=== PATIENT | male | born 1940 | race Caucasian/White ===

== ENCOUNTER 2016-09-10 16:50 | Outpatient (CLI) | payer MEDICARE, MEDICAID | END 2016-09-10 16:51 | disposition home or self-care (01) | LOC: HPCALD 16:50 | PROVIDERS: ATTEND Family Medicine | DX: I48.2 Chronic atrial fibrillation (principal) | CPT/HCPCS: 36415; 85610 ==

== ENCOUNTER 2016-12-10 09:43 | Outpatient (CLI) | payer MEDICARE, MEDICAID ==
[2016-12-10 11:17] LABS: ALT (SGPT) 23 U/L (0-55); AST (SGOT) 17 U/L (5-34); Albumin 4.1 g/dL (3.4-4.8); Alkaline Phosphatase 72 U/L (40-150); Anion Gap 17 mmol/L (10-20); BUN (Urea Nitrogen) 20 mg/dL (8.4-25.7); Bilirubin, Total 0.6 mg/dL (0.2-1.2); Calc. Creatinine Clearance 0 mL/min (70-130); Calcium 9.2 mg/dL (7.8-10.44); Carbon Dioxide 24 mmol/L (23-31); Cardiac Risk 4.5 (Less than 4.5); Chloride 106 mmol/L (98-107); Cholesterol 98 mg/dL (< 200 Desired); Estimated GFR-MDRD 47; Globulin 2.6 g/dL (2.4-3.5); Glucose 136 mg/dL (83-110); HDL Cholesterol 22 mg/dL (>60 Neg Risk); LDL Cholesterol, Calculated 42 mg/dL; Potassium 4.7 mmol/L (3.5-5.1); Protein, Total 6.7 g/dL (5.8-8.1); Sodium 142 mmol/L (136-145); Triglycerides 171 mg/dL (Less than 150)
[2016-12-10 12:19] LABS: #Basophils 0.1 thou/uL (0.0-0.2); #Eosinphils 0.5 thou/uL (0.0-0.7); #Lymphocytes 1.5 thou/uL (1.20-3.40); #Monocytes 0.7 thou/uL (0.11-0.59); #Neutrophils 5.1 thou/uL (1.40-6.50); %Basophils 0.9 % (0.0-1.0); %Eosinophils 6.4 % (0.0-10.0); %Lymphocytes 18.7 % (21.0-51.0); %Monocytes 8.9 % (0.0-10.0); %Neutrophils 65.1 % (42.0-75.0); Hemoglobin 15.6 g/dL (14.0-18.0); Mean Corpuscular HGB CONC 34.6 g/dL (32.0-36.0); Mean Corpuscular Hemoglobin 32.2 pg (27.0-31.0); Mean Corpuscular Volume 93.1 fl (80.0-94.0); Mean Platelet Volume 6.3 fL (7.4-10.4); Platelet Count 189 thou/uL (130-400); RBC Distribution Width 11.7 % (11.5-14.5); Red Blood Cell (RBC) Count 4.85 mill/uL (4.70-6.10); White Blood Cell (WBC) Count 7.8 thou/uL (4.8-10.8)
[2016-12-10 12:30] LABS: Hemoglobin A1c 5.9 % (4.0-6.0)
[2016-12-10 18:10] LABS: Creatinine, Urine 82.31 mg/dL (63-166)
[2016-12-10 18:13] LABS: Microalbumin Urine 51.3 mg/dL (0.5-50.0); Microalbumin/Creat Ratio 623.3 mg/g (Less than 30)
== END 2016-12-10 09:44 | disposition home or self-care (01) ==
LOC: HPCALD 09:43
PROVIDERS: ATTEND Family Medicine
DX: E11.9 Type 2 diabetes mellitus without complications (principal)
CPT/HCPCS: 36415; 80053; 80061; 82043; 83036; 84443; 85025

== ENCOUNTER 2017-01-13 10:24 | Emergency (ER) | payer MEDICARE, MEDICAID ==
[2017-01-13 10:48] LABS: ALT (SGPT) 38 U/L (8-55); AST (SGOT) 41 U/L (5-34); Albumin 3.3 g/dL (3.4-4.8); Alkaline Phosphatase 92 U/L (40-150); BUN (Urea Nitrogen) 22 mg/dL (8.4-25.7); Bilirubin, Total 0.5 mg/dL (0.2-1.2); Calc. Creatinine Clearance 0 mL/min (70-130); Calcium 9.8 mg/dL (7.8-10.44); Chloride 110 mmol/L (98-107); Estimated GFR-MDRD 32; Globulin 2.7 g/dL (2.4-3.5); Potassium 5.6 mmol/L (3.5-5.1); Sodium 148 mmol/L (136-145)
[2017-01-13 10:49] LABS: Glucose 327 mg/dL (83-110)
[2017-01-13 10:50] LABS: Carbon Dioxide Less than 8 mmol/L (23-31)
[2017-01-13 10:54] LABS: Anisocytosis SLIGHT = 6-15 cells (100X) (0-5/hpf); Eosinophils 6 % (0-10); Hemoglobin 14.5 g/dL (14.0-18.0); Lymphocytes 59 % (21-51); MDiff Complete? YES; Mean Corpuscular HGB CONC 32.4 g/dL (32.0-36.0); Mean Corpuscular Hemoglobin 32.7 pg (27.0-31.0); Mean Platelet Volume 6.5 fL (7.4-10.4); Monocytes 5 % (0-10); Neutrophil 30 % (42-75); PLT Morphology Comment Appears Adequate; Platelet Count 144 thou/uL (130-400); Red Blood Cell (RBC) Count 4.43 mill/uL (4.70-6.10); White Blood Cell (WBC) Count 9.5 thou/uL (4.8-10.8)
[2017-01-13 10:55] LABS: CKMB 2.8 ng/mL (0-6.6); Troponin I 0.022 ng/mL (< 0.028)
== END 2017-01-13 12:31 | disposition expired ==
LOC: BURERS 10:24
DX: I46.9 Cardiac arrest, cause unspecified (principal); I25.2 Old myocardial infarction; I48.91 Unspecified atrial fibrillation; E11.9 Type 2 diabetes mellitus without complications; F32.9 Major depressive disorder, single episode, unspecified
CPT/HCPCS: 80053; 82553; 84484; 85025; 96374; 96375